=== PATIENT | male | born 1955 | race Caucasian/White ===

== ENCOUNTER 2016-11-19 15:52 | Emergency (ER) | payer OTHER ==
[~2016-11-19] VITALS: Ht 175.3 cm; Wt 105.5 kg
[~2016-11-19 15:52] MED LIST: ALTACE10 MG PO; AMLODIPINE-BEN1 EACH PO; ASPIRIN BUFFER325 MG PO; ASPIRIN325 MG PO; CEFDINIR300 MG PO; CLINDAMYCIN HC300 MG PO; COMBIVENT RESPIM4 GM IH; COZAAR100 MG PO; CRESTOR40 MG PO; DUONEB 2.5-0.5 M3 ML AEROSOL; FISH OIL 1,0001 EAC7 PO; FLEXERIL10 MG PO; GLYNASE3 MG PO; GLYNASE6 MG PO; HYDROCHLOROTHIA25 MG PO; HYDROCODONE-AP1 EAC8 PO; ISOSORBIDE MONO60 MG PO; LEVOFLOXACIN500 MG PO; LEVOTHYROXINE75 MCG PO; LEVOTHYROXINE88 MCG PO; LIPITOR80 MG PO; LO-DOSE ASPIRIN81 M1 PO; LYRICA100 MG PO; NIACIN500 M1 PO; NITROQUICK0.4 MG SL; NITROSTAT0.4 MG SL; NORVASC10 MG PO; PERCOCET 5/31 TABLET PO; PRILOSEC20 MG PO; SYNTHROID100 MCG PO; TOPROL XL100 MG PO; TRAMADOL HCL50 MG PO; ZETIA10 MG PO
[2016-11-19] MEDS ORDERED: BACTRIM,SEPT1 TABLET PO (17:32)
[2016-11-19] MEDS ORDERED: KEFLEX500 MG PO (17:32)
[2016-11-19 18:02] VITALS: BP 106/72
== END 2016-11-19 18:07 | disposition home or self-care (01) ==
LOC: EME 15:52
PROC: 0H90XZZ Drainage of Scalp Skin, External Approach (ICD-10-PCS; principal; 2016-11-19)
DX: L02.811 Cutaneous abscess of head [any part, except face] (principal)
CPT/HCPCS: 99281; 99284

== ENCOUNTER 2017-06-21 03:37 | Inpatient (IN) | payer OTHER ==
[~2017-06-21] VITALS: Ht 177.8 cm; Wt 94.6 kg
[~2017-06-21 03:37] MED LIST changes: +BACTRIM,SEPT1 TABLET PO; +GLYBURIDE MICRON6 MG PO; -GLYNASE6 MG PO; +KEFLEX500 MG PO
[2017-06-21 04:25] LABS: HEMATOCRIT 39.5 % (38.0-50.0); HEMOGLOBIN 13.8 G/DL (12.5-16.6); MCH 30.2 PG (29.0-34.0); MCHC 34.9 G/DL (30.0-36.0); MCV 86.4 FL (86-99); PLATELET COUNT 203 K/uL (156-360); RBC DIS.WIDTH-CV 12.9 % (11.8-14.6); RBC DIS.WIDTH-SD 40.9 % (39-53); RED BLOOD COUNT 4.57 M/uL (4.00-5.50); WHITE BLOOD COUNT 8.1 K/uL (4.1-10.2)
[2017-06-21 04:36] LABS: ALBUMIN 3.7 g/dL (3.2-4.8); CHLORIDE 96 mEq/L (99-109); POTASSIUM 3.1 mEq/L (3.7-5.4); SODIUM 137 mEq/L (136-147)
[2017-06-21 04:39] LABS: GLUCOSE 172 mg/dL (70-99); TOTAL PROTEIN 7.9 g/dL (6.4-8.3)
[2017-06-21 04:40] LABS: TOTAL BILIRUBIN 0.5 mg/dL (0.0-1.0)
[2017-06-21 04:42] LABS: ALKALINE PHOSPHATASE 73 IU/L (3-129); CREATININE 1.3 mg/dL (0.6-1.3); GFR ESTIMATE (CALCULATED) > 59 mL/min/ (58.99-99999)
[2017-06-21 04:43] LABS: UREA NITROGEN (BUN) 18 mg/dL (9-23)
[2017-06-21 04:44] LABS: AST (GOT) 34 IU/L (2-34)
[2017-06-21 04:45] LABS: ALT (GPT) 18 IU/L (3-49)
[2017-06-21 04:46] LABS: LIPASE 8 U/L (1.0-51.0)
[2017-06-21 04:52] LABS: TROP-I INTERPRETATION NEGATIVE; TROPONIN-I < 0.01 ng/mL (0.0-0.30)
[2017-06-21 05:13] LABS: MAGNESIUM 1.2 mg/dL (1.3-2.7)
[2017-06-21 05:18] LABS: PHOSPHORUS 2.3 mg/dL (2.5-4.9)
[2017-06-21] MEDS ORDERED: COMBIVENT RESPIM4 GM IH (07:12)
[2017-06-21] MEDS ORDERED: METFORMIN HCL500 MG PO (07:15)
[2017-06-21 09:11] LABS: APPEARANCE CLEAR ((CLEAR)); BILIRUBIN NEGATIVE; BLOOD MODERATE; COLOR YELLOW ((YELLOW)); GLUCOSE (STRIP) 50; KETONES NEGATIVE; LEUKOCYTES NEGATIVE; NITRITE NEGATIVE; PROTEIN (STRIP) 30; SPECIFIC GRAVITY 1.011 (1.000-1.030); UROBILINOGEN 0.2 MG/DL (0.2-1.0)
[2017-06-21 09:32] LABS: BACTERIA RARE /HPF; EPITHELIAL CELLS RARE /HPF; MUCUS NONE SEEN /LPF; RED BLOOD CELLS 0-5 /HPF (0-5); WHITE BLOOD CELLS 0-5 /HPF (0-5)
[2017-06-21 10:33] LABS: HEMOGLOBIN A1c (GLYCOHEMOGLOB) 5.9 % (Below 5.7)
[2017-06-21 13:02] LABS: THYROTROPIN (TSH) 2.5 MIU/L (0.4-5.5)
[2017-06-21 13:51] VITALS: BP 145/87
[2017-06-21 19:51] VITALS: BP 130/78
[2017-06-21 23:35] VITALS: BP 121/63
[2017-06-22 03:20] VITALS: BP 111/66
[2017-06-22 06:33] LABS: BASOPHIL (%) 0 % (0-1); EOSINOPHIL (%) 0 % (0-5); HEMATOCRIT 36.5 % (38.0-50.0); HEMOGLOBIN 12.4 G/DL (12.5-16.6); IMMATURE GRANULOCYTE (%) 0.7 % (0.0-0.7); LYMPHOCYTE (%) 7.9 % (15-42); LYMPHOCYTE COUNT 0.7 K/uL (1.0-2.8); MCH 30.1 PG (29.0-34.0); MCV 88.6 FL (86-99); MONOCYTE (%) 5.2 % (3-12); MONOCYTE COUNT 0.5 K/uL (0-0.8); NEUTROPHIL (%) 86.2 % (45-76); NEUTROPHIL COUNT 7.8 K/uL (1.8-6.4); PLATELET COUNT 198 K/uL (156-360); RBC DIS.WIDTH-CV 13.3 % (11.8-14.6); RBC DIS.WIDTH-SD 43.8 % (39-53); RED BLOOD COUNT 4.12 M/uL (4.00-5.50)
[2017-06-22 06:55] LABS: CHLORIDE 96 MEQ/L (99-109); CREATININE 1.2 MG/DL (0.6-1.3); GFR ESTIMATE (CALCULATED) > 59 mL/min/ (58.99-99999); GLUCOSE 126 mg/dL (70-99); SODIUM 135 MEQ/L (136-147); UREA NITROGEN (BUN) 12 mg/dL (9-23)
[2017-06-22 06:57] LABS: POTASSIUM 3.9 MEQ/L (3.7-5.4)
[2017-06-22 08:00] VITALS: BP 138/72
[2017-06-22 11:14] LABS: TROP-I INTERPRETATION NEGATIVE; TROPONIN-I 0.02 ng/mL (0.0-0.30)
[2017-06-22 11:14] LABS: BASE EXCESS 4.2 mEq/L (-3 to +3); BICARBONATE 28.4 mEq/L (22-26); CARBOXY HGB 3.1 % (0-5); METHEMOGLOBIN 1.3 % (0-1.5); PCO2 40 mm Hg (35-45); PO2 59 mm Hg (80-100); pH 7.46 (7.35-7.45)
[2017-06-22 11:15] LABS: COMMENTS - BLOOD GASES A+C+; DEVICE NC; O2 FLOW 5 L/MIN; SITE RB
[2017-06-22 12:04] VITALS: BP 100/72
[2017-06-22 15:33] VITALS: BP 108/66
[2017-06-22 20:05] VITALS: BP 105/68
[2017-06-22 23:50] VITALS: BP 123/69
[2017-06-23 03:25] VITALS: BP 134/85
[2017-06-23 06:14] LABS: BASOPHIL (%) 0.1 % (0-1); EOSINOPHIL (%) 0 % (0-5); HEMATOCRIT 37.2 % (38.0-50.0); HEMOGLOBIN 12.4 G/DL (12.5-16.6); IMMATURE GRANULOCYTE (%) 0.5 % (0.0-0.7); LYMPHOCYTE (%) 4.5 % (15-42); LYMPHOCYTE COUNT 0.4 K/uL (1.0-2.8); MCH 29.5 PG (29.0-34.0); MCHC 33.3 G/DL (30.0-36.0); MCV 88.4 FL (86-99); MONOCYTE (%) 2.8 % (3-12); MONOCYTE COUNT 0.3 K/uL (0-0.8); NEUTROPHIL (%) 92.1 % (45-76); NEUTROPHIL COUNT 8.9 K/uL (1.8-6.4); PLATELET COUNT 193 K/uL (156-360); RBC DIS.WIDTH-CV 13.5 % (11.8-14.6); RBC DIS.WIDTH-SD 43.8 % (39-53); RED BLOOD COUNT 4.21 M/uL (4.00-5.50); WHITE BLOOD COUNT 9.7 K/uL (4.1-10.2)
[2017-06-23 07:09] LABS: CHLORIDE 99 MEQ/L (99-109); GFR ESTIMATE (CALCULATED) > 59 mL/min/ (58.99-99999); POTASSIUM 3.3 MEQ/L (3.7-5.4); SODIUM 136 MEQ/L (136-147); UREA NITROGEN (BUN) 15 mg/dL (9-23)
[2017-06-23 07:10] LABS: GLUCOSE 240 mg/dL (70-99)
[2017-06-23 07:40] VITALS: BP 99/75
[2017-06-23 11:40] VITALS: BP 114/71
[2017-06-23 15:30] VITALS: BP 137/71
[2017-06-23 20:27] VITALS: BP 120/75
[2017-06-24] VITALS (7 sets, daily range): BP systolic 96–138; BP diastolic 55–78
[2017-06-25] VITALS (8 sets, daily range): BP systolic 108–140; BP diastolic 60–80
[2017-06-25 06:22] LABS: HEMATOCRIT 36.3 % (38.0-50.0); HEMOGLOBIN 11.7 G/DL (12.5-16.6); MCHC 32.2 G/DL (30.0-36.0); MCV 90.1 FL (86-99); PLATELET COUNT 188 K/uL (156-360); RBC DIS.WIDTH-CV 14.1 % (11.8-14.6); RBC DIS.WIDTH-SD 46.9 % (39-53); RED BLOOD COUNT 4.03 M/uL (4.00-5.50)
[2017-06-25 07:06] LABS: CHLORIDE 102 MEQ/L (99-109); GFR ESTIMATE (CALCULATED) > 59 mL/min/ (58.99-99999); GLUCOSE 267 mg/dL (70-99); SODIUM 141 MEQ/L (136-147)
[2017-06-25 07:09] LABS: POTASSIUM 4.6 MEQ/L (3.7-5.4); UREA NITROGEN (BUN) 24 mg/dL (9-23)
[2017-06-26] VITALS (7 sets, daily range): BP systolic 109–127; BP diastolic 60–79
[2017-06-26 07:00] LABS: HEMATOCRIT 38.7 % (38.0-50.0); HEMOGLOBIN 12.4 G/DL (12.5-16.6); MCH 28.9 PG (29.0-34.0); MCV 90.2 FL (86-99); PLATELET COUNT 236 K/uL (156-360); RBC DIS.WIDTH-SD 46.5 % (39-53); RED BLOOD COUNT 4.29 M/uL (4.00-5.50); WHITE BLOOD COUNT 6.9 K/uL (4.1-10.2)
[2017-06-26 07:27] LABS: CHLORIDE 100 MEQ/L (99-109); GFR ESTIMATE (CALCULATED) > 59 mL/min/ (58.99-99999); GLUCOSE 253 mg/dL (70-99); POTASSIUM 4.3 MEQ/L (3.7-5.4); SODIUM 141 MEQ/L (136-147); UREA NITROGEN (BUN) 27 mg/dL (9-23)
[2017-06-27 03:36] VITALS: BP 114/74
[2017-06-27 06:50] LABS: CHLORIDE 103 MEQ/L (99-109); CREATININE 0.9 MG/DL (0.6-1.3); GFR ESTIMATE (CALCULATED) > 59 mL/min/ (58.99-99999); GLUCOSE 218 mg/dL (70-99); POTASSIUM 4.5 MEQ/L (3.7-5.4); SODIUM 142 MEQ/L (136-147); UREA NITROGEN (BUN) 31 mg/dL (9-23)
[2017-06-27 07:27] VITALS: BP 118/65
[2017-06-27 11:13] VITALS: BP 106/64
[2017-06-27 15:25] VITALS: BP 114/68
[2017-06-27 20:09] VITALS: BP 108/65
[2017-06-28 00:11] VITALS: BP 115/71
[2017-06-28 03:33] VITALS: BP 124/76
[2017-06-28 06:17] LABS: BASOPHIL (%) 0.2 % (0-1); EOSINOPHIL (%) 0 % (0-5); HEMATOCRIT 41.4 % (38.0-50.0); HEMOGLOBIN 13.2 G/DL (12.5-16.6); IMMATURE GRANULOCYTE (%) 0.7 % (0.0-0.7); LYMPHOCYTE (%) 4.5 % (15-42); LYMPHOCYTE COUNT 0.6 K/uL (1.0-2.8); MCH 28.6 PG (29.0-34.0); MCHC 31.9 G/DL (30.0-36.0); MCV 89.8 FL (86-99); MONOCYTE (%) 4.3 % (3-12); MONOCYTE COUNT 0.6 K/uL (0-0.8); NEUTROPHIL (%) 90.3 % (45-76); NEUTROPHIL COUNT 11.7 K/uL (1.8-6.4); PLATELET COUNT 306 K/uL (156-360); RBC DIS.WIDTH-CV 13.4 % (11.8-14.6); RBC DIS.WIDTH-SD 44.4 % (39-53); RED BLOOD COUNT 4.61 M/uL (4.00-5.50); WHITE BLOOD COUNT 12.9 K/uL (4.1-10.2)
[2017-06-28 06:39] LABS: ALBUMIN 3.3 G/DL (3.2-4.8); ALKALINE PHOSPHATASE 61 IU/L (3-129); ALT (GPT) 10 IU/L (3-49); AST (GOT) 9 IU/L (2-34); CHLORIDE 103 MEQ/L (99-109); CREATININE 0.9 MG/DL (0.6-1.3); GFR ESTIMATE (CALCULATED) > 59 mL/min/ (58.99-99999); GLUCOSE 228 mg/dL (70-99); POTASSIUM 4.2 MEQ/L (3.7-5.4); SODIUM 142 MEQ/L (136-147); TOTAL BILIRUBIN 0.6 MG/DL (0.0-1.0); TOTAL PROTEIN 6.6 G/DL (6.4-8.3); UREA NITROGEN (BUN) 32 mg/dL (9-23)
[2017-06-28 07:10] VITALS: BP 111/66
[2017-06-28 11:08] LABS: C DIFF TOXIN NEGATIVE (NEGATIVE)
[2017-06-28 15:24] VITALS: BP 110/64
[2017-06-28 19:34] VITALS: BP 106/66
[2017-06-28 23:24] VITALS: BP 135/65
[2017-06-29 03:25] VITALS: BP 108/73
[2017-06-29 07:49] VITALS: BP 115/64
[2017-06-29 10:57] VITALS: BP 104/58
[2017-06-29] MEDS ORDERED: GLIPIZIDE10 MG GT (11:24)
[2017-06-29] MEDS ORDERED: LEVOTHYROXINE100 MCG GT (11:24)
[2017-06-29] MEDS ORDERED: AMOX TR-K600 MG/5 M GT (11:29)
[2017-06-29] MEDS ORDERED: MILLIPRED10 MG/5 ML PO (11:33)
== END 2017-06-29 14:20 | disposition home health service (06) | DRG 177 ==
LOC: EME → EDBD 03:37 → EME 03:37 → 2EAST 05:23 → EDOF 05:23 → ENRESERV 05:31 → 2EASTP 13:46 → ENRESERV 22:09 → 2EAST 22:28
PROVIDERS: Emergency Medicine; Hospitalist; Internal Medicine; Student in an Organized Health Care Education/Training Program
DX: J69.0 Pneumonitis due to inhalation of food and vomit (principal); J96.01 Acute respiratory failure with hypoxia; J44.1 Chronic obstructive pulmonary disease with (acute) exacerbation; R13.10 Dysphagia, unspecified; E11.649 Type 2 diabetes mellitus with hypoglycemia without coma; I10 Essential (primary) hypertension; E11.40 Type 2 diabetes mellitus with diabetic neuropathy, unspecified; K22.2 Esophageal obstruction; Y84.2 Radiological procedure and radiotherapy as the cause of abnormal reaction of the patient, or of later complication, without mention of misadventure at the time of the procedure; E83.42 Hypomagnesemia; E83.39 Other disorders of phosphorus metabolism; E86.0 Dehydration; N28.9 Disorder of kidney and ureter, unspecified; E87.6 Hypokalemia; R19.7 Diarrhea, unspecified; R59.0 Localized enlarged lymph nodes; E11.51 Type 2 diabetes mellitus with diabetic peripheral angiopathy without gangrene; G47.33 Obstructive sleep apnea (adult) (pediatric); I25.10 Atherosclerotic heart disease of native coronary artery without angina pectoris; E03.9 Hypothyroidism, unspecified; E78.5 Hyperlipidemia, unspecified; K21.0 Gastro-esophageal reflux disease with esophagitis; K44.9 Diaphragmatic hernia without obstruction or gangrene; I25.2 Old myocardial infarction; I45.10 Unspecified right bundle-branch block; R47.02 Dysphasia; R63.3 Feeding difficulties; Z85.21 Personal history of malignant neoplasm of larynx; Z92.21 Personal history of antineoplastic chemotherapy; Z95.5 Presence of coronary angioplasty implant and graft; Z79.82 Long term (current) use of aspirin; Z79.84 Long term (current) use of oral hypoglycemic drugs; Z87.891 Personal history of nicotine dependence; Z83.3 Family history of diabetes mellitus; Z82.49 Family history of ischemic heart disease and other diseases of the circulatory system
CPT/HCPCS: 36600; 71045; 71046; 71275; 74230; 80048; 80053; 81003; 82803; 82948; 83036; 83605; 83690; 83735; 84100; 84443; 84484; 85025; 85027; 85379; 87040; 87070; 87081; 87205; 87449; 87493; 87502; 87641; 92526 GN; 92610 GN; 92611 GN; 93005; 93306; 93970; 94640; 94640 76; 94667; 94668; 94760; 94799; 99202; 99281; 99285; C9113; J0295; J0690; J0696; J1650; J1815; J1885; J1940; J2250; J2543; J2920; J2930; J3010; J3475; J3480; J7030; J7050; J7120; J7512